=== PATIENT | male | born 1985 | race Hispanic/Latino ===

== ENCOUNTER 2021-02-26 09:50 | Emergency (ER) | payer BC ==
[~2021-02-26] VITALS: Ht 177.8 cm; Wt 142.9 kg
[2021-02-26 10:14] LABS: BASOPHILS # (AUTO) 0.1 (0.0-0.1); BASOPHILS % 0.7 % (0.0-1.0); EOSINOPHILS # (AUTO) 0.2 (0.0-0.4); EOSINOPHILS % 2.8 % (0.0-6.0); HEMATOCRIT 43.7 % (38.2-49.6); HEMOGLOBIN 14.6 g/dL (14.0-18.0); LYMPHOCYTES # (AUTO) 3.2 (1.0-3.2); LYMPHOCYTES % 42.7 % (18.0-39.1); MEAN CORPUSCULAR HEMOGLOBIN 29.8 pg (28-32); MEAN CORPUSCULAR HGB CONC 33.4 g/dL (31-35); MEAN CORPUSCULAR VOLUME 89.2 fL (81-99); MONOCYTES # (AUTO) 0.4 (0.2-0.8); MONOCYTES % 5.3 % (4.4-11.3); NEUTROPHILS # (AUTO) 3.7 (2.1-6.9); NEUTROPHILS % 48.4 % (38.7-80.0); PLATELET COUNT 335 x10e3/uL (140-360)
[2021-02-26 10:35] LABS: ALANINE AMINOTRANSFERASE 70 IU/L (0-55); ALBUMIN 4.3 g/dL (3.5-5.0); ALKALINE PHOSPHATASE 71 IU/L (40-150); ANION GAP 15.2 mmol/L (8-16); BLOOD UREA NITROGEN 12 mg/dL (7-26); BUN/CREATININE RATIO 14 (6-25); CALCIUM 9.6 mg/dL (8.4-10.2); CARBON DIOXIDE 25 mmol/L (22-29); CHLORIDE 105 mmol/L (98-107); CREATINE KINASE 91 IU/L (30-200); CREATININE, SERUM 0.84 mg/dL (0.72-1.25); EST GLOMERULAR FILTRATION RATE 103 ML/MIN (60-); GLUCOSE 105 mg/dL (74-118); POTASSIUM 4.2 mmol/L (3.5-5.1); SODIUM 141 mmol/L (136-145)
[2021-02-26 11:25] VITALS: BP 134/93
== END 2021-02-26 13:42 | disposition home or self-care (01) ==
LOC: ER 09:55
DX: R07.89 Other chest pain (principal); F41.9 Anxiety disorder, unspecified; E78.5 Hyperlipidemia, unspecified
CPT/HCPCS: 36415; 71045; 80053; 82550; 82553; 83690; 84484; 85025; 93005; 99283